=== PATIENT | male | born 1955 | race Caucasian/White ===

== ENCOUNTER 2019-01-09 13:39 | Day surgery (SDC) | payer OTHER ==
[~2019-01-09] VITALS: Ht 193 cm; Wt 98.0 kg
[~2019-01-09 13:39] MED LIST: ASPI81CH PO
--- NOTE | 2019-01-09 14:08 | NUR ---
ONCE PT CAME INTO [facility]. HE STARTED TALKING TO RN THAT HIS IN THE HOSPITAL 9 DAYS AGO. HE APPEARS VERY DISTRAUGHT AND DEPRESSED. KEEPS SAYING TO RN THAT "MY HAD SURGERY HERE AND THEY TOOK HER OFF PAIN MEDICATION AND SHE WAS LOOPY". I HAVE NOT SLEPT IN 7 DAYS AND HAVENT REALLY SLEPT IN PROBABLY MORE THAN 7. RN ATTEMPTED TO LISTEN TO PT AND GIVE COMFORT WHERE ABLE.
--- NOTE | 2019-01-09 14:10 | NUR ---
Ambulatory in Day SurgeryPatient states colon prep results clear. History, Chart, Medications and Allergies reviewed before start of procedure.Lungs clear T/O to Auscultation. Patient confirms NPO status and agrees with scheduled surgery. Pre-Op teaching done. Pt verbalizes understanding. Patient States Post-Procedure ride home has been arranged.
--- NOTE | 2019-01-09 14:49 | NUR ---
PT CONTINUED SPEAKING TO RN THROUGHOUT ADMIT PROCESS ABOUT HIS AND HOW MANY SURGERIES HE HAS HAD, HIS SEVERAL TRIPS INTO THE ER AND HOW HE DIAGNOSED HIS OWN BROKEN BONE IN HIS LEFT HAND WHICH NOONE WOULD DO SURGERY ON BUT HE NEEDED. PT SAYS HE IS NOT IMPRESSED WITH THIS HOSPITAL. RN LISTENED TO PTS CONCERNS, COMPLAINTS. RN ATTEMPTED TO ANSWER ALL OF PT QUESTIONS AND CONCERNS. CALL LIGHT GIVEN TO PT. BED LOW, SIDERAILS UP. PT IS FINE AND SITTING IN BED WAITING FOR PROCEDURE.
--- NOTE | 2019-01-09 15:01 | NUR ---
01/09/19 1501 Talib Colvin History, Chart, Medications and Allergies reviewed before start of procedure.MONITOR INTACT WITH CONTINUOUS PULSE OXIMETRY AND INTERMITTENT BP.3-LEAD EKG REVIEWED WITH PHYSICIAN PRIOR TO START OF PROCEDURE.O2 VIA N/C INTACT THROUGHOUT SEDATION/PROCEDURE. Patient confirms NPO status and agrees with scheduled surgery.PATIENT DETERMINED TO BE ASA APPROPRIATE FOR PROPOFOL SEDATION PRIOR TO START OF PROCEDURE BY DR. BELTRAN.
--- NOTE | 2019-01-09 16:14 | NUR ---
DR BELTRAN HERE AT BEDSIDE WITH PATIENT AT THIS TIME DISCUSSING EXAM RESULTS.
--- NOTE | 2019-01-09 16:37 | NUR ---
Patient States Post-Procedure ride home has been arranged. Discharge instructions reviewed with patient. Patient verbalizes understanding. Copy given to patient to take home.
--- NOTE | 2019-01-09 16:37 | NUR ---
Discharged via wheelchair to private car for ride home.
== END 2019-01-09 16:35 | disposition home or self-care (01) ==
LOC: ORSCMMR 13:39 → ORD 14:30 → ORSCMMR 14:30
PROVIDERS: Internal Medicine Gastroenterology
PROC: 0DBK8ZX Excision of Ascending Colon, Via Natural or Artificial Opening Endoscopic, Diagnostic (ICD-10-PCS; principal; 2019-01-09 14:30)
DX: R10.32 Left lower quadrant pain (principal); D12.2 Benign neoplasm of ascending colon; E78.5 Hyperlipidemia, unspecified; K64.8 Other hemorrhoids; E11.9 Type 2 diabetes mellitus without complications; F17.210 Nicotine dependence, cigarettes, uncomplicated
CPT/HCPCS: 82947; 88305; J2250; J2704; J7120

== ENCOUNTER 2019-06-18 14:36 | Day surgery (SDC) | payer OTHER | END 2019-06-18 23:04 | disposition home or self-care (01) | LOC: RAD 14:36 | DX: S63.502A Unspecified sprain of left wrist, initial encounter (principal); X58.XXXA Exposure to other specified factors, initial encounter | CPT/HCPCS: 25246; 73115; 73222; Q9967 ==

== ENCOUNTER 2019-12-07 21:10 | Emergency (ER) | payer OTHER ==
[~2019-12-07] VITALS: Ht 190.5 cm; Wt 102.1 kg
[2019-12-07] MEDS ORDERED: Prednisone20 MG PO (23:13)
[2019-12-07] MEDS ORDERED: Cyclobenzaprine5 MG PO (23:13)
== END 2019-12-07 23:40 | disposition home or self-care (01) ==
LOC: ER 21:10
DX: M54.41 Lumbago with sciatica, right side (principal); G89.29 Other chronic pain; F17.290 Nicotine dependence, other tobacco product, uncomplicated; Z88.5 Allergy status to narcotic agent
CPT/HCPCS: 96374; 96375; 99283-25; J1100; J1885

== ENCOUNTER 2019-12-11 11:45 | Emergency (ER) | payer OTHER ==
[~2019-12-11] VITALS: Ht 188 cm; Wt 102.1 kg
[~2019-12-11 11:45] MED LIST changes: +Cyclobenzaprine5 MG PO; +Prednisone20 MG PO
[2019-12-11] MEDS ORDERED: Miralax17 GM PO (16:15)
[2019-12-11] MEDS ORDERED: Kristalose20 GM PO (16:15)
== END 2019-12-11 16:27 | disposition home or self-care (01) ==
LOC: ER 11:45
DX: K59.00 Constipation, unspecified (principal); M54.41 Lumbago with sciatica, right side; F17.200 Nicotine dependence, unspecified, uncomplicated
CPT/HCPCS: 51798; 72148; 74018; 99284-25

== ENCOUNTER → 2020-01-12 | Outpatient (CLI) | payer MEDICARE, OTHER ==
[~2020-01-12] MED LIST changes: +Kristalose20 GM PO; +Miralax17 GM PO
== END | disposition home or self-care (01) ==
LOC: LAB 11:39 → LAB SHORT 11:39
DX: Z11.59 Encounter for screening for other viral diseases (principal)
CPT/HCPCS: U0002